=== PATIENT | female | born 1990 ===

== ENCOUNTER 2018-11-11 20:40 | Emergency (ER) | payer OTHER ==
[~2018-11-11] VITALS: Ht 167.6 cm; Wt 66.0 kg
[2018-11-11] MEDS ORDERED: ACETAMINOPHEN 325MG TABLET PO ONE (21:30)
[2018-11-11 22:49] LABS: BASOPHILS % 0.3 % (0.0-2.0); EOSINOPHILS % 0.4 % (0.0-5.0); HEMATOCRIT. 41.2 % (36.0-48.0); HEMOGLOBIN. 13.8 g/dL (12.0-16.0); LYMPHOCYTES % 18.4 % (20.0-50.0); MEAN CORPUSCULAR VOLUME 92.5 fL (81.0-99.0); MONOCYTES % 7.7 % (2.0-8.0); NEUTROPHILS % 73.2 % (40.0-76.0); PLATELET 238 x1000/uL (130-400); RED BLOOD CELL COUNT 4.45 mill/uL (4.2-5.4); RED CELL DISTRIBUTION WIDTH 13.8 % (11.6-14.6)
[2018-11-11 22:55] LABS: CHLORIDE 106 mEq/L (98-107)
[2018-11-11 22:57] LABS: HCG SCREEN POSITIVE
[2018-11-11] MEDS ORDERED: KETOROLAC 15MG/ML VIAL IV ONE (23:00)
[2018-11-12 00:08] VITALS: BP 100/68
[2018-11-12] MEDS ORDERED: MORPHINE SULFATE 4 MG/ML CPJ (NOT FOR IM USE) IV ONE (00:15)
== END 2018-11-12 02:46 | disposition home or self-care (01) ==
LOC: ER 20:40
DX: S09.8XXA Other specified injuries of head, initial encounter (principal); R55 Syncope and collapse; M54.2 Cervicalgia; W18.39XA Other fall on same level, initial encounter; Y93.89 Activity, other specified; Y92.89 Other specified places as the place of occurrence of the external cause; Y99.8 Other external cause status; F17.200 Nicotine dependence, unspecified, uncomplicated
CPT/HCPCS: 36415; 70450; 72125; 80053; 84484; 84703; 85025; 93005; 96374; 99284; J1885; J2270; Z7610